=== PATIENT | male | born 1940 | race African-American/Black ===

== ENCOUNTER 2021-05-06 09:29 | Inpatient (IN) | payer OTHER ==
[~2021-05-06] VITALS: Ht 188 cm; Wt 98.4 kg
[2021-05-06] MEDS ORDERED: MORPHINE SULFATE 4 MG/ML CPJ (NOT FOR IM USE) IV STA (09:55)
[2021-05-06] MEDS ORDERED: ACETAMINOPHEN 325MG TABLET PO STA (09:55)
[2021-05-06] MEDS ORDERED: SODIUM CHLORIDE 0.9% 1000ML BAG (SEPSIS BOLUS) IV ONE (10:00)
[2021-05-06 10:31] LABS: HEMATOCRIT. 33.3 % (42.0-52.0); HEMOGLOBIN. 10.9 g/dL (14.0-18.0); MEAN CORPUSCULAR HEMOGLOBIN 28.9 pg (28.0-32.0); MEAN CORPUSCULAR VOLUME 88.1 fL (80.0-94.0); MEAN PLATELET VOLUME 8.4 fl (7.4-10.4); PLATELET 229 x1000/uL (130-400); RED BLOOD CELL COUNT 3.78 mill/uL (4.7-6.1); RED CELL DISTRIBUTION WIDTH 15.6 % (11.6-14.6)
[2021-05-06 10:35] LABS: CHLORIDE 110 mEq/L (98-107)
[2021-05-06 11:03] LABS: CLARITY URINE CLOUDY (CLEAR); COLOR URINE YELLOW (YELLOW); KETONES URINE NEGATIVE (NEGATIVE); LEUKOCYTE ESTERASE URINE 3+ (NEGATIVE); NITRITE URINE POSITIVE (NEGATIVE); OCCULT BLOOD URINE 2+ (NEGATIVE); PROTEIN URINE 2+ (NEGATIVE); SPECIFIC GRAVITY URINE 1.015 (1.005-1.030)
[2021-05-06] MEDS ORDERED: CEFTRIAXONE 1 G PREMIX 50 ML IV ONE (11:15)
[2021-05-06 12:49] LABS: PLATELET ESTIMATE NORMAL
[2021-05-06] MEDS ORDERED: DEXTROSE 50% WATER 50ML SYRINGE IV PRN (13:15)
[2021-05-06] MEDS: INSULIN LISPRO 100 UNITS/ML SUBCUT SCH ×3 (13:20→21:00)
[2021-05-06] MEDS: SODIUM CHLORIDE 0.45% 1,000 ML IV SCH (13:38)
[2021-05-06] MEDS: HYDROCODONE/ACETAMINOPHEN 5/325MG TABLET PO PRN (16:46)
[2021-05-06] MEDS: BLOOD SUGAR DIAGNOSTIC STRIP TEST SCH ×2 (17:19→21:00)
[2021-05-06 22:00] VITALS: BP 156/60
[2021-05-06] MEDS ORDERED: NALOXONE HCL 0.4 MG/ML 1ML VIAL IV PRN (23:45)
[2021-05-07] VITALS: BP 188/75
[2021-05-07 00:10] VITALS: BP 143/72
[2021-05-07] MEDS ORDERED: METF-873 PO (00:18)
[2021-05-07] MEDS ORDERED: ATEN50TA PO (00:19)
[2021-05-07] MEDS ORDERED: ALLO300T2 PO (00:21)
[2021-05-07] MEDS: PIPERACILLIN/TAZOBACTAM 3.375 G in DEXTROSE 5% WATER 50 ML IV SCH ×4 (00:59→21:29)
[2021-05-07] MEDS ORDERED: VANCOMYCIN 1250MG in DEXTROSE 5% WATER 250ML IV SCH (02:00)
[2021-05-07] MEDS: HYDROCODONE/ACETAMINOPHEN 5/325MG TABLET PO PRN (02:14)
[2021-05-07] MEDS: SODIUM CHLORIDE 0.45% 1,000 ML IV SCH ×3 (02:49→22:45)
[2021-05-07 04:00] VITALS: BP 112/59
[2021-05-07] MEDS: BLOOD SUGAR DIAGNOSTIC STRIP TEST SCH ×3 (05:52→21:28)
[2021-05-07] MEDS: INSULIN LISPRO 100 UNITS/ML SUBCUT SCH ×3 (06:32→21:00)
[2021-05-07 08:00] VITALS: BP_SYST 54
[2021-05-07] MEDS: ENOXAPARIN 40MG/0.4ML SYR SUBCUT SCH (09:47)
[2021-05-07] MEDS: PANTOPRAZOLE SODIUM 40 MG/VIAL IV SCH (12:25)
[2021-05-07 16:00] VITALS: BP 143/64
[2021-05-07] MEDS: ACETAMINOPHEN 325MG TABLET PO PRN ×2 (16:18→23:41)
[2021-05-07 20:00] VITALS: BP 105/53
[2021-05-07 23:55] LABS: HEMATOCRIT. 36.4 % (42.0-52.0); HEMOGLOBIN. 11.8 g/dL (14.0-18.0); MEAN CORPUSCULAR VOLUME 89.8 fL (80.0-94.0); MEAN PLATELET VOLUME 8.7 fl (7.4-10.4); PLATELET 187 x1000/uL (130-400); RED BLOOD CELL COUNT 4.05 mill/uL (4.7-6.1); RED CELL DISTRIBUTION WIDTH 16.3 % (11.6-14.6)
[2021-05-08] VITALS: BP 155/83
[2021-05-08] MEDS ORDERED: VANCOMYCIN 1 G PREMIX 200 ML IV SCH
[2021-05-08 03:45] LABS: PLATELET ESTIMATE NORMAL
[2021-05-08 04:00] VITALS: BP 116/56
[2021-05-08] MEDS: SODIUM CHLORIDE 0.45% 1,000 ML IV SCH ×2 (06:13→17:43)
[2021-05-08] MEDS: BLOOD SUGAR DIAGNOSTIC STRIP TEST SCH ×4 (06:29→21:53)
[2021-05-08] MEDS: INSULIN LISPRO 100 UNITS/ML SUBCUT SCH ×4 (06:29→21:59)
[2021-05-08] MEDS: PIPERACILLIN/TAZOBACTAM 3.375 G in DEXTROSE 5% WATER 50 ML IV SCH ×3 (06:30→21:59)
[2021-05-08 07:20] LABS: MEAN CORPUSCULAR HEMOGLOBIN 29.3 pg (28.0-32.0); MEAN CORPUSCULAR VOLUME 88.2 fL (80.0-94.0); MEAN PLATELET VOLUME 9.4 fl (7.4-10.4); PLATELET 189 x1000/uL (130-400); RED BLOOD CELL COUNT 3.32 mill/uL (4.7-6.1)
[2021-05-08 07:28] LABS: HEMATOCRIT. 29.3 % (42.0-52.0); HEMOGLOBIN. 9.7 g/dL (14.0-18.0)
[2021-05-08 07:48] LABS: SODIUM URINE RANDOM 28 mEq/L
[2021-05-08 08:00] VITALS: BP 112/74
[2021-05-08] MEDS: ENOXAPARIN 40MG/0.4ML SYR SUBCUT SCH (09:50)
[2021-05-08] MEDS: PANTOPRAZOLE SODIUM 40 MG/VIAL IV SCH (09:50)
[2021-05-08 12:00] VITALS: BP 134/68
[2021-05-08 13:46] LABS: PLATELET ESTIMATE NORMAL
[2021-05-08] MEDS ORDERED: VANCOMYCIN 1250MG in DEXTROSE 5% WATER 250ML IV SCH (14:00)
[2021-05-08 16:00] VITALS: BP 117/51
[2021-05-08 20:00] VITALS: BP 126/57
[2021-05-09] VITALS: BP 136/64
[2021-05-09] MEDS: SODIUM CHLORIDE 0.45% 1,000 ML IV SCH ×2 (00:57→14:30)
[2021-05-09 04:00] VITALS: BP 130/66
[2021-05-09] MEDS: BLOOD SUGAR DIAGNOSTIC STRIP TEST SCH ×4 (06:47→21:01)
[2021-05-09] MEDS: PIPERACILLIN/TAZOBACTAM 3.375 G in DEXTROSE 5% WATER 50 ML IV SCH ×3 (06:50→21:12)
[2021-05-09] MEDS: INSULIN LISPRO 100 UNITS/ML SUBCUT SCH ×4 (06:52→21:00)
[2021-05-09 08:00] VITALS: BP 120/66
[2021-05-09] MEDS: FAMOTIDINE 20MG/2ML VIAL IV SCH (08:43)
[2021-05-09] MEDS: ENOXAPARIN 30MG/0.3ML SYR SUBCUT SCH ×2 (08:44→21:12)
[2021-05-09 12:00] VITALS: BP 132/72
[2021-05-09] MEDS ORDERED: HYDRALAZINE 20MG/ML VIAL IV PRN (15:30)
[2021-05-09 16:00] VITALS: BP 135/70
[2021-05-09 17:05] LABS: HEMATOCRIT. 34.4 % (42.0-52.0); HEMOGLOBIN. 11.2 g/dL (14.0-18.0); MEAN CORPUSCULAR HEMOGLOBIN 28.7 pg (28.0-32.0); MEAN CORPUSCULAR VOLUME 88.2 fL (80.0-94.0); MEAN PLATELET VOLUME 9.5 fl (7.4-10.4); PLATELET 195 x1000/uL (130-400); RED CELL DISTRIBUTION WIDTH 16.5 % (11.6-14.6)
[2021-05-09 17:06] LABS: INR 1.1; PROTHROMBIN TIME 11.6 sec (9.6-11.0)
[2021-05-09 17:17] LABS: CHLORIDE 116 mEq/L (98-107)
[2021-05-09] MEDS: DEXTROSE 5% WATER 1,000 ML IV SCH (17:24)
[2021-05-09 18:41] LABS: PLATELET ESTIMATE NORMAL
[2021-05-09 20:00] VITALS: BP 139/65
[2021-05-09] MEDS: ACETAMINOPHEN 325MG TABLET PO PRN (20:04)
[2021-05-10] VITALS: BP 160/108
[2021-05-10 04:00] VITALS: BP 148/86
[2021-05-10] MEDS: DEXTROSE 5% WATER 1,000 ML IV SCH ×2 (05:05→18:06)
[2021-05-10] MEDS: BLOOD SUGAR DIAGNOSTIC STRIP TEST SCH ×4 (05:51→21:56)
[2021-05-10] MEDS: INSULIN LISPRO 100 UNITS/ML SUBCUT SCH ×4 (06:24→21:56)
[2021-05-10] MEDS: PIPERACILLIN/TAZOBACTAM 3.375 G in DEXTROSE 5% WATER 50 ML IV SCH ×3 (06:24→21:54)
[2021-05-10 07:39] LABS: HEMOGLOBIN. 10.8 g/dL (14.0-18.0); MEAN CORPUSCULAR HEMOGLOBIN 29.4 pg (28.0-32.0); MEAN CORPUSCULAR VOLUME 87.3 fL (80.0-94.0); PLATELET 220 x1000/uL (130-400); RED BLOOD CELL COUNT 3.66 mill/uL (4.7-6.1); RED CELL DISTRIBUTION WIDTH 16.2 % (11.6-14.6)
[2021-05-10 07:42] LABS: CHLORIDE 115 mEq/L (98-107)
[2021-05-10 08:00] VITALS: BP 154/68
[2021-05-10] MEDS: FAMOTIDINE 20MG/2ML VIAL IV SCH (08:49)
[2021-05-10] MEDS: ENOXAPARIN 30MG/0.3ML SYR SUBCUT SCH ×2 (08:50→21:54)
[2021-05-10] MEDS ORDERED: LIDOCAINE HCL 1% 10 MG/ML 10ML VIAL ONE (10:10)
[2021-05-10 12:00] VITALS: BP 131/74
[2021-05-10] MEDS: ACETAMINOPHEN 325MG TABLET PO PRN (12:44)
[2021-05-10 16:00] VITALS: BP 135/70
[2021-05-10 20:00] VITALS: BP 141/70
[2021-05-10 20:24] LABS: PLATELET ESTIMATE NORMAL
[2021-05-11] VITALS: BP 152/69
[2021-05-11] MEDS: ACETAMINOPHEN 325MG TABLET PO PRN ×2 (00:34→16:13)
[2021-05-11] MEDS: DEXTROSE 5% WATER 1,000 ML IV SCH ×2 (02:47→15:03)
[2021-05-11 04:00] VITALS: BP 137/74
[2021-05-11] MEDS: BLOOD SUGAR DIAGNOSTIC STRIP TEST SCH ×4 (05:48→21:00)
[2021-05-11] MEDS: INSULIN LISPRO 100 UNITS/ML SUBCUT SCH ×4 (06:32→22:25)
[2021-05-11] MEDS: PIPERACILLIN/TAZOBACTAM 3.375 G in DEXTROSE 5% WATER 50 ML IV SCH ×3 (06:33→22:20)
[2021-05-11 07:12] LABS: HEMATOCRIT. 30.5 % (42.0-52.0); HEMOGLOBIN. 10.4 g/dL (14.0-18.0); MEAN CORPUSCULAR HEMOGLOBIN 29.5 pg (28.0-32.0); MEAN CORPUSCULAR VOLUME 86.8 fL (80.0-94.0); MEAN PLATELET VOLUME 8.9 fl (7.4-10.4); PLATELET 214 x1000/uL (130-400); RED BLOOD CELL COUNT 3.51 mill/uL (4.7-6.1); RED CELL DISTRIBUTION WIDTH 16.1 % (11.6-14.6)
[2021-05-11 07:20] LABS: CHLORIDE 114 mEq/L (98-107)
[2021-05-11 08:00] VITALS: BP 143/64
[2021-05-11] MEDS: ENOXAPARIN 30MG/0.3ML SYR SUBCUT SCH (09:51)
[2021-05-11] MEDS: FAMOTIDINE 20MG TABLET PO SCH (09:51)
[2021-05-11 12:00] VITALS: BP 169/88
[2021-05-11 16:00] VITALS: BP 131/59
[2021-05-11 19:07] LABS: PLATELET ESTIMATE NORMAL
[2021-05-11 20:00] VITALS: BP 127/59
[2021-05-11] MEDS ORDERED: METOPROLOL TARTRATE 25MG TABLET PO NR (21:30)
[2021-05-12] VITALS: BP 145/96
[2021-05-12] MEDS: ENOXAPARIN 30MG/0.3ML SYR SUBCUT SCH ×2 (00:32→08:50)
[2021-05-12] MEDS: ACETAMINOPHEN 325MG TABLET PO PRN ×2 (01:09→21:54)
[2021-05-12] MEDS ORDERED: DIGOXIN 500MCG/2ML AMP IV NR ×2 (02:00)
[2021-05-12 04:00] VITALS: BP 114/68
[2021-05-12] MEDS: BLOOD SUGAR DIAGNOSTIC STRIP TEST SCH ×4 (06:40→21:41)
[2021-05-12] MEDS: INSULIN LISPRO 100 UNITS/ML SUBCUT SCH ×4 (07:10→21:53)
[2021-05-12 07:29] LABS: HEMATOCRIT. 32.3 % (42.0-52.0); HEMOGLOBIN. 10.9 g/dL (14.0-18.0); MEAN PLATELET VOLUME 8.4 fl (7.4-10.4); PLATELET 264 x1000/uL (130-400); RED BLOOD CELL COUNT 3.75 mill/uL (4.7-6.1); RED CELL DISTRIBUTION WIDTH 15.7 % (11.6-14.6)
[2021-05-12 08:00] VITALS: BP 135/59
[2021-05-12 08:39] LABS: CHLORIDE 109 mEq/L (98-107)
[2021-05-12] MEDS: DEXTROSE 5% WATER 1,000 ML IV SCH ×2 (08:51→21:54)
[2021-05-12] MEDS: FAMOTIDINE 20MG TABLET PO SCH (08:51)
[2021-05-12] MEDS ORDERED: METOPROLOL TARTRATE 25MG TABLET PO SCH (09:00)
[2021-05-12] MEDS ORDERED: DILTIAZEM HCL 5MG/ML 5ML VIAL IV SCH (10:00)
[2021-05-12 10:28] LABS: T4 FREE 1.1 ng/dL (0.76-1.46)
[2021-05-12 12:00] VITALS: BP 123/55
[2021-05-12 12:06] LABS: ATYPICAL LYMPHOCYTES 3
[2021-05-12 12:07] LABS: PLATELET ESTIMATE NORMAL
[2021-05-12] MEDS ORDERED: ENOXAPARIN 60MG/0.6ML SYR SUBCUT SCH (12:15)
[2021-05-12] MEDS ORDERED: CEFTRIAXONE 1 G PREMIX 50 ML IV SCH ×2 (14:45)
[2021-05-12] MEDS: METOPROLOL TARTRATE 25MG TABLET PO SCH ×2 (14:51→21:43)
[2021-05-12 16:00] VITALS: BP 131/69
[2021-05-12] MEDS: CEFTRIAXONE 1,000 MG in DEXTROSE 5% WATER 50 ML IV SCH (17:53)
[2021-05-12 20:00] VITALS: BP 120/78
[2021-05-12] MEDS ORDERED: ENOXAPARIN 100MG/ML SYR SUBCUT SCH (21:00)
[2021-05-13] VITALS: BP 121/67
[2021-05-13 04:00] VITALS: BP 121/88
[2021-05-13] MEDS: BLOOD SUGAR DIAGNOSTIC STRIP TEST SCH ×4 (06:13→21:09)
[2021-05-13] MEDS: INSULIN LISPRO 100 UNITS/ML SUBCUT SCH ×4 (06:13→21:00)
[2021-05-13] MEDS: METOPROLOL TARTRATE 25MG TABLET PO SCH ×2 (06:13→21:09)
[2021-05-13 08:00] VITALS: BP 134/75
[2021-05-13 08:07] LABS: HEMATOCRIT. 31.4 % (42.0-52.0); HEMOGLOBIN. 10.5 g/dL (14.0-18.0); MEAN CORPUSCULAR VOLUME 86.2 fL (80.0-94.0); MEAN PLATELET VOLUME 8.4 fl (7.4-10.4); PLATELET 232 x1000/uL (130-400); RED BLOOD CELL COUNT 3.64 mill/uL (4.7-6.1); RED CELL DISTRIBUTION WIDTH 15.7 % (11.6-14.6)
[2021-05-13 08:17] LABS: CHLORIDE 106 mEq/L (98-107)
[2021-05-13] MEDS: ENOXAPARIN 80MG/0.8ML SYR SUBCUT SCH ×2 (08:28→21:09)
[2021-05-13] MEDS: FAMOTIDINE 20MG TABLET PO SCH (08:28)
[2021-05-13] MEDS ORDERED: POTASSIUM CHLORIDE 20MEQ/PACKET PO SCH (10:00)
[2021-05-13] MEDS ORDERED: DILTIAZEM HCL 60MG TABLET PO SCH (10:15)
[2021-05-13 10:51] LABS: PLATELET ESTIMATE NORMAL
[2021-05-13] MEDS ORDERED: MAGNESIUM 2 G PREMIX 50 ML IV SCH (11:00)
[2021-05-13 12:00] VITALS: BP 114/80
[2021-05-13] MEDS: CEFTRIAXONE 1,000 MG in DEXTROSE 5% WATER 50 ML IV SCH (14:13)
[2021-05-13] MEDS: SODIUM CHLORIDE 0.45% 1,000 ML IV SCH (14:14)
[2021-05-13 16:00] VITALS: BP 92/68
[2021-05-13] MEDS: DILTIAZEM HCL 60MG TABLET PO SCH ×2 (18:34→23:19)
[2021-05-13 20:00] VITALS: BP 129/78
[2021-05-13] MEDS: ACETAMINOPHEN 325MG TABLET PO PRN (21:15)
[2021-05-14] VITALS: BP 99/69
[2021-05-14 04:00] VITALS: BP 121/83
[2021-05-14] MEDS: DILTIAZEM HCL 60MG TABLET PO SCH ×3 (05:35→18:23)
[2021-05-14] MEDS: SODIUM CHLORIDE 0.45% 1,000 ML IV SCH (06:06)
[2021-05-14] MEDS: INSULIN LISPRO 100 UNITS/ML SUBCUT SCH ×4 (06:53→21:00)
[2021-05-14] MEDS: BLOOD SUGAR DIAGNOSTIC STRIP TEST SCH ×4 (06:53→22:08)
[2021-05-14 07:45] LABS: BASOPHILS % 0.4 % (0.0-2.0); EOSINOPHILS % 1.8 % (0.0-5.0); HEMATOCRIT. 32.4 % (42.0-52.0); HEMOGLOBIN. 10.9 g/dL (14.0-18.0); LYMPHOCYTES % 7.6 % (20.0-50.0); MEAN CORPUSCULAR HEMOGLOBIN 29.2 pg (28.0-32.0); MEAN CORPUSCULAR VOLUME 86.9 fL (80.0-94.0); MEAN PLATELET VOLUME 8.3 fl (7.4-10.4); MONOCYTES % 11.1 % (2.0-8.0); NEUTROPHILS % 79.1 % (40.0-76.0); PLATELET 273 x1000/uL (130-400); RED BLOOD CELL COUNT 3.73 mill/uL (4.7-6.1); RED CELL DISTRIBUTION WIDTH 15.8 % (11.6-14.6)
[2021-05-14 07:48] LABS: CHLORIDE 106 mEq/L (98-107)
[2021-05-14 08:00] VITALS: BP 118/75
[2021-05-14] MEDS: ENOXAPARIN 80MG/0.8ML SYR SUBCUT SCH ×2 (09:09→21:57)
[2021-05-14] MEDS: METOPROLOL TARTRATE 25MG TABLET PO SCH (09:09)
[2021-05-14] MEDS: FAMOTIDINE 20MG TABLET PO SCH (09:09)
[2021-05-14] MEDS ORDERED: DIGOXIN 500MCG/2ML AMP IV NR (11:15)
[2021-05-14 12:00] VITALS: BP 115/71
[2021-05-14] MEDS: CEFTRIAXONE 1,000 MG in DEXTROSE 5% WATER 50 ML IV SCH (12:58)
[2021-05-14] MEDS ORDERED: DILTIAZEM HCL 5MG/ML 5ML VIAL IV NR (14:45)
[2021-05-14 16:00] VITALS: BP 110/74
[2021-05-14] MEDS: DIGOXIN 500MCG/2ML AMP IV SCH ×2 (17:25→21:58)
[2021-05-14 20:00] VITALS: BP 131/83
[2021-05-14] MEDS: METOPROLOL TARTRATE 50MG TABLET PO SCH (21:58)
[2021-05-14] MEDS: ACETAMINOPHEN 325MG TABLET PO PRN (21:59)
[2021-05-15] VITALS: BP 103/75
[2021-05-15] MEDS: DILTIAZEM HCL 60MG TABLET PO SCH ×4 (00:48→16:13)
[2021-05-15] MEDS: SODIUM CHLORIDE 0.45% 1,000 ML IV SCH ×2 (00:48→14:38)
[2021-05-15] MEDS: DIGOXIN 500MCG/2ML AMP IV SCH ×4 (01:50→09:35)
[2021-05-15 04:00] VITALS: BP 113/75
[2021-05-15] MEDS: BLOOD SUGAR DIAGNOSTIC STRIP TEST SCH ×4 (06:30→21:00)
[2021-05-15] MEDS: INSULIN LISPRO 100 UNITS/ML SUBCUT SCH ×4 (06:30→21:00)
[2021-05-15 06:53] LABS: HEMATOCRIT. 32.5 % (42.0-52.0); MEAN CORPUSCULAR VOLUME 85.7 fL (80.0-94.0); PLATELET 309 x1000/uL (130-400); RED BLOOD CELL COUNT 3.79 mill/uL (4.7-6.1); RED CELL DISTRIBUTION WIDTH 15.5 % (11.6-14.6)
[2021-05-15 07:32] LABS: CHLORIDE 105 mEq/L (98-107)
[2021-05-15 08:00] VITALS: BP 115/72
[2021-05-15 08:08] LABS: DIGOXIN 4.8 ng/mL (0.9-2.0)
[2021-05-15] MEDS ORDERED: DILTIAZEM HCL 30MG TABLET PO NR (09:00)
[2021-05-15] MEDS: METOPROLOL TARTRATE 50MG TABLET PO SCH ×2 (09:34→21:00)
[2021-05-15] MEDS: FAMOTIDINE 20MG TABLET PO SCH (09:34)
[2021-05-15] MEDS: ENOXAPARIN 80MG/0.8ML SYR SUBCUT SCH (09:35)
[2021-05-15] MEDS ORDERED: MAGNESIUM 1 G PREMIX 100 ML IV NR (10:00)
[2021-05-15 12:00] VITALS: BP 102/61
[2021-05-15 12:05] LABS: PLATELET ESTIMATE NORMAL
[2021-05-15] MEDS: CEFTRIAXONE 1,000 MG in DEXTROSE 5% WATER 50 ML IV SCH (13:30)
[2021-05-15] MEDS: ACETAMINOPHEN 325MG TABLET PO PRN ×2 (14:20→23:06)
[2021-05-15] MEDS ORDERED: HYDROCODONE/ACETAMINOPHEN 5/325MG TABLET PO PRN (15:30)
[2021-05-15] MEDS ORDERED: LORAZEPAM 2MG/ML CPJ IV PRN (15:30)
[2021-05-15] MEDS ORDERED: NALOXONE HCL 0.4MG/ML VIAL IV PRN (15:45)
[2021-05-15 16:00] VITALS: BP 110/68
[2021-05-15 20:00] VITALS: BP 121/75
[2021-05-15] MEDS: ENOXAPARIN 100MG/ML SYR SUBCUT SCH (21:00)
[2021-05-16] VITALS (8 sets, daily range): BP systolic 112–146; BP diastolic 64–88
[2021-05-16] MEDS: DILTIAZEM HCL 60MG TABLET PO SCH ×3 (06:12→13:05)
[2021-05-16] MEDS: BLOOD SUGAR DIAGNOSTIC STRIP TEST SCH ×3 (06:12→17:05)
[2021-05-16 06:33] LABS: BASOPHILS % 0.4 % (0.0-2.0); HEMATOCRIT. 32.9 % (42.0-52.0); HEMOGLOBIN. 11.2 g/dL (14.0-18.0); LYMPHOCYTES % 7.4 % (20.0-50.0); MEAN CORPUSCULAR VOLUME 85.8 fL (80.0-94.0); MEAN PLATELET VOLUME 8.1 fl (7.4-10.4); MONOCYTES % 12.8 % (2.0-8.0); NEUTROPHILS % 77.4 % (40.0-76.0); PLATELET 335 x1000/uL (130-400); RED BLOOD CELL COUNT 3.84 mill/uL (4.7-6.1); RED CELL DISTRIBUTION WIDTH 15.3 % (11.6-14.6)
[2021-05-16] MEDS: INSULIN LISPRO 100 UNITS/ML SUBCUT SCH ×3 (06:42→17:06)
[2021-05-16 06:54] LABS: CHLORIDE 106 mEq/L (98-107)
[2021-05-16 07:15] LABS: DIGOXIN 1.5 ng/mL (0.9-2.0)
[2021-05-16] MEDS: SODIUM CHLORIDE 0.45% 1,000 ML IV SCH (08:10)
[2021-05-16] MEDS: FAMOTIDINE 20MG TABLET PO SCH (08:34)
[2021-05-16] MEDS: METOPROLOL TARTRATE 50MG TABLET PO SCH (08:35)
[2021-05-16] MEDS: ENOXAPARIN 100MG/ML SYR SUBCUT SCH (08:35)
[2021-05-16] MEDS: CEFTRIAXONE 1,000 MG in DEXTROSE 5% WATER 50 ML IV SCH (13:04)
[2021-05-16] MEDS: ACETAMINOPHEN 325MG TABLET PO PRN (13:05)
[2021-05-16] MEDS ORDERED: DILTIAZEM HCL 90MG TABLET PO SCH (18:00)
== END 2021-05-16 20:25 | DRG 871 ==
LOC: ER 09:29 → EDBEDREQSVC 11:27 → EDBEDREQ 11:27 → EDBEDREQTM 11:27 → 7EST 12:35 → EDBEDREQTM 12:43 → EDBEDREQ 12:43 → SUPCPDRO 13:11 → ENRESERV 20:13
PROVIDERS: ADMIT Internal Medicine; ATTEND Internal Medicine
PROC: 02HV33Z Insertion of Infusion Device into Superior Vena Cava, Percutaneous Approach (ICD-10-PCS; principal; 2021-05-10)
PROC: B518ZZA Fluoroscopy of Superior Vena Cava, Guidance (ICD-10-PCS; 2021-05-10)
PROC: B548ZZA Ultrasonography of Superior Vena Cava, Guidance (ICD-10-PCS; 2021-05-10)
DX: A41.51 Sepsis due to Escherichia coli [E. coli] (principal); N17.0 Acute kidney failure with tubular necrosis; I48.92 Unspecified atrial flutter; I82.412 Acute embolism and thrombosis of left femoral vein; I82.492 Acute embolism and thrombosis of other specified deep vein of left lower extremity; E87.1 Hypo-osmolality and hyponatremia; N12 Tubulo-interstitial nephritis, not specified as acute or chronic; E44.1 Mild protein-calorie malnutrition; D64.9 Anemia, unspecified; M10.9 Gout, unspecified; Z85.46 Personal history of malignant neoplasm of prostate; Z96.651 Presence of right artificial knee joint; M54.50 Low back pain, unspecified; M54.9 Dorsalgia, unspecified; G89.29 Other chronic pain; E78.5 Hyperlipidemia, unspecified; I48.91 Unspecified atrial fibrillation; I12.9 Hypertensive chronic kidney disease with stage 1 through stage 4 chronic kidney disease, or unspecified chronic kidney disease; Z20.822 Contact with and (suspected) exposure to COVID-19; E11.22 Type 2 diabetes mellitus with diabetic chronic kidney disease; N18.9 Chronic kidney disease, unspecified; Z79.899 Other long term (current) drug therapy; Z79.84 Long term (current) use of oral hypoglycemic drugs; Z68.27 Body mass index [BMI] 27.0-27.9, adult
CPT/HCPCS: 36415; 36573; 71045; 74176; 76770; 78582; 80048; 80053; 80076; 80162; 80202; 81003; 82962; 83036; 83605; 83735; 83935; 84145; 84153; 84300; 84439; 84443; 84481; 84484; 85025; 85379; 87077; 87186; 87426; 93005; 93306; 93970; 97110; 97116; 97162; 97166; 97530; 99291; A9558; C1725; C1769; C1893; C9113; J0360; J0696; J1160; J1650; J1815; J2270; J2543; J3370; J3475; J3490; J7030; J7040; J7060; J7070; G0103

== ENCOUNTER 2021-10-05 21:32 | Inpatient (IN) | payer OTHER ==
[~2021-10-05] VITALS: Ht 188 cm; Wt 91.7 kg
[~2021-10-05 21:32] MED LIST: ACET-2708 PO; ALBU90AE INH; ALLO300T2 PO; APIX5TAB MT; APIX5TAB PO; DIGO125T80 MT; DILT120T13 MT; METF-873 PO; METO75TA MT; SIMV-46 MT; VALS80TA30 PO
[2021-10-05] MEDS ORDERED: ACETAMINOPHEN 325MG TABLET PO STA (22:42)
[2021-10-05] MEDS ORDERED: KETOROLAC 30MG/ML VIAL IV STA (22:42)
[2021-10-05] MEDS ORDERED: CEFTRIAXONE 1 G PREMIX 50 ML IV ONE (22:45)
[2021-10-05] MEDS ORDERED: SODIUM CHLORIDE 0.9% 1,000 ML IV ONE (22:45)
[2021-10-05 23:50] LABS: HEMATOCRIT. 38.3 % (42.0-52.0); HEMOGLOBIN. 13.1 g/dL (14.0-18.0); MEAN CORPUSCULAR HEMOGLOBIN 30.1 pg (28.0-32.0); MEAN CORPUSCULAR VOLUME 88.2 fL (80.0-94.0); MEAN PLATELET VOLUME 7.8 fl (7.4-10.4); PLATELET 155 x1000/uL (130-400); RED BLOOD CELL COUNT 4.35 mill/uL (4.7-6.1); RED CELL DISTRIBUTION WIDTH 17.6 % (11.6-14.6)
[2021-10-06 00:05] LABS: CHLORIDE 109 mEq/L (98-107)
[2021-10-06 00:11] LABS: CLARITY URINE CLOUDY (CLEAR); COLOR URINE YELLOW (YELLOW); KETONES URINE NEGATIVE (NEGATIVE); LEUKOCYTE ESTERASE URINE 1+ (NEGATIVE); NITRITE URINE NEGATIVE (NEGATIVE); OCCULT BLOOD URINE TRACE (NEGATIVE); PROTEIN URINE 1+ (NEGATIVE); SPECIFIC GRAVITY URINE 1.021 (1.005-1.030); UROBILINOGEN URINE 0.2 E.U./dL (0.2-1.0)
[2021-10-06] MEDS ORDERED: CEFTRIAXONE 1 G PREMIX 50 ML IV SCH (00:15)
[2021-10-06] MEDS ORDERED: ACETAMINOPHEN 325MG TABLET PO SCH (00:15)
[2021-10-06] MEDS ORDERED: KETOROLAC 30MG/ML VIAL IV SCH (00:15)
[2021-10-06 04:27] LABS: PLATELET ESTIMATE NORMAL
[2021-10-06 05:50] VITALS: BP 134/64
[2021-10-06] MEDS ORDERED: DEXTROSE 50% WATER 50ML SYRINGE IV PRN (07:00)
[2021-10-06] MEDS ORDERED: ACETAMINOPHEN 325MG TABLET PO PRN (07:00)
[2021-10-06] MEDS: BLOOD SUGAR DIAGNOSTIC STRIP TEST SCH ×4 (07:08→19:56)
[2021-10-06] MEDS: INSULIN LISPRO 100 UNITS/ML SUBCUT SCH ×4 (07:12→21:00)
[2021-10-06 08:00] VITALS: BP 133/59
[2021-10-06] MEDS: PANTOPRAZOLE SODIUM 40 MG/VIAL IV SCH (08:41)
[2021-10-06] MEDS ORDERED: APIXABAN 5 MG TABLET PO SCH (09:00)
[2021-10-06] MEDS ORDERED: PIPERACILLIN/TAZOBACTAM 3.375 G in DEXTROSE 5% WATER 50 ML IV SCH (09:00)
[2021-10-06] MEDS ORDERED: IPRATROPIUM/ALBUTEROL 0.5-3(2.5)MG/3ML NEB NEB PRN (10:00)
[2021-10-06] MEDS ORDERED: MAGNESIUM/ALUMINUM HYDROXIDE/SIMETHICONE 30ML UDC PO PRN (10:00)
[2021-10-06] MEDS ORDERED: GUAIFENESIN 200MG/10ML SUGAR FREE UDC PO PRN (10:00)
[2021-10-06] MEDS ORDERED: CLONIDINE 0.1MG TABLET PO PRN (10:00)
[2021-10-06] MEDS ORDERED: NA PHOS,M-B/NA PHOS,DI-BA ENEMA 118ML PR PRN (10:00)
[2021-10-06] MEDS ORDERED: HYDROCODONE/ACETAMINOPHEN 5/325MG TABLET PO PRN (10:00)
[2021-10-06] MEDS ORDERED: ONDANSETRON HCL 4MG/2ML INJ IV PRN (10:00)
[2021-10-06] MEDS ORDERED: LORAZEPAM 0.5MG TABLET PO PRN (10:00)
[2021-10-06] MEDS ORDERED: DIPHENHYDRAMINE 50MG/ML VIAL IV PRN (10:00)
[2021-10-06] MEDS ORDERED: DOCUSATE SODIUM 100MG CAPSULE PO PRN (10:00)
[2021-10-06] MEDS ORDERED: NALOXONE HCL 0.4MG/ML VIAL IV PRN (10:15)
[2021-10-06 10:52] LABS: BASOPHILS % 0.3 % (0.0-2.0); EOSINOPHILS % 0.4 % (0.0-5.0); HEMATOCRIT. 37.7 % (42.0-52.0); HEMOGLOBIN. 12.9 g/dL (14.0-18.0); LYMPHOCYTES % 8.3 % (20.0-50.0); MEAN CORPUSCULAR HEMOGLOBIN 30.5 pg (28.0-32.0); MEAN CORPUSCULAR VOLUME 88.9 fL (80.0-94.0); MEAN PLATELET VOLUME 7.8 fl (7.4-10.4); MONOCYTES % 11.4 % (2.0-8.0); NEUTROPHILS % 79.6 % (40.0-76.0); PLATELET 133 x1000/uL (130-400); RED BLOOD CELL COUNT 4.24 mill/uL (4.7-6.1); RED CELL DISTRIBUTION WIDTH 17.4 % (11.6-14.6)
[2021-10-06 10:56] LABS: CHLORIDE 110 mEq/L (98-107)
[2021-10-06 11:56] LABS: INR 1.1; PROTHROMBIN TIME 11.6 sec (9.6-11.0)
[2021-10-06 12:17] VITALS: BP 148/67
[2021-10-06] MEDS: LEVOFLOXACIN 500MG PREMIX 100 ML IV SCH (13:09)
[2021-10-06] MEDS: SODIUM CHLORIDE 0.45% 1,000 ML IV SCH (14:46)
[2021-10-06 16:00] VITALS: BP 153/77
[2021-10-06] MEDS: APIXABAN 5 MG TABLET PO SCH (17:52)
[2021-10-06 20:00] VITALS: BP 138/68
[2021-10-07] VITALS: BP 142/73
[2021-10-07 03:58] VITALS: BP 112/76
[2021-10-07] MEDS: BLOOD SUGAR DIAGNOSTIC STRIP TEST SCH ×4 (05:28→19:44)
[2021-10-07] MEDS: INSULIN LISPRO 100 UNITS/ML SUBCUT SCH ×4 (05:36→21:00)
[2021-10-07 07:18] LABS: HEMATOCRIT. 34.2 % (42.0-52.0); MEAN CORPUSCULAR HEMOGLOBIN 30.8 pg (28.0-32.0); MEAN PLATELET VOLUME 7.6 fl (7.4-10.4); PLATELET 140 x1000/uL (130-400); RED BLOOD CELL COUNT 3.89 mill/uL (4.7-6.1); RED CELL DISTRIBUTION WIDTH 17.2 % (11.6-14.6)
[2021-10-07 07:51] LABS: CHLORIDE 108 mEq/L (98-107)
[2021-10-07 08:00] VITALS: BP 155/89
[2021-10-07 08:10] LABS: HDL CHOLESTEROL 37 mg/dL (40-59); LDL CHOLESTEROL 82 mg/dL (5-100)
[2021-10-07] MEDS: APIXABAN 5 MG TABLET PO SCH ×2 (08:32→16:58)
[2021-10-07] MEDS: PANTOPRAZOLE SODIUM 40 MG/VIAL IV SCH (08:32)
[2021-10-07 08:58] LABS: PLATELET ESTIMATE NORMAL
[2021-10-07 12:00] VITALS: BP 140/76
[2021-10-07] MEDS: LEVOFLOXACIN 500MG PREMIX 100 ML IV SCH (12:42)
[2021-10-07] MEDS: SODIUM CHLORIDE 0.45% 1,000 ML IV SCH (12:43)
[2021-10-07 16:00] VITALS: BP 134/69
[2021-10-07 20:00] VITALS: BP 146/83
[2021-10-08] VITALS: BP 139/82
[2021-10-08 04:00] VITALS: BP 149/76
[2021-10-08] MEDS: BLOOD SUGAR DIAGNOSTIC STRIP TEST SCH ×2 (05:15→12:46)
[2021-10-08] MEDS: INSULIN LISPRO 100 UNITS/ML SUBCUT SCH ×2 (05:26→12:40)
[2021-10-08 08:00] VITALS: BP 134/83
[2021-10-08 08:09] LABS: HEMATOCRIT. 35.2 % (42.0-52.0); HEMOGLOBIN. 12.1 g/dL (14.0-18.0); MEAN CORPUSCULAR VOLUME 87.2 fL (80.0-94.0); MEAN PLATELET VOLUME 7.7 fl (7.4-10.4); PLATELET 145 x1000/uL (130-400); RED BLOOD CELL COUNT 4.03 mill/uL (4.7-6.1); RED CELL DISTRIBUTION WIDTH 16.8 % (11.6-14.6)
[2021-10-08 08:27] LABS: CHLORIDE 109 mEq/L (98-107)
[2021-10-08] MEDS: PANTOPRAZOLE SODIUM 40 MG/VIAL IV SCH (08:51)
[2021-10-08] MEDS: APIXABAN 5 MG TABLET PO SCH (08:51)
[2021-10-08 10:56] LABS: PLATELET ESTIMATE NORMAL
[2021-10-08] MEDS ORDERED: AMOX-424 MT (11:57)
[2021-10-08 12:00] VITALS: BP 149/73
[2021-10-08 12:28] VITALS: BP 149/73
[2021-10-08] MEDS: LEVOFLOXACIN 500MG PREMIX 100 ML IV SCH (12:46)
[2021-10-08 16:00] VITALS: BP 139/69
== END 2021-10-08 17:35 | disposition home or self-care (01) | DRG 690 ==
LOC: ER 21:32 → EDBEDREQ 10-06 01:24 → 8WST 10-06 03:33 → EDBEDREQTM 10-06 03:39 → EDBEDREQ 10-06 03:39 → ENRESERV 10-06 04:16
PROVIDERS: ADMIT Internal Medicine; ATTEND Internal Medicine
DX: N39.0 Urinary tract infection, site not specified (principal); I48.20 Chronic atrial fibrillation, unspecified; R65.10 Systemic inflammatory response syndrome (SIRS) of non-infectious origin without acute organ dysfunction; D64.9 Anemia, unspecified; E86.0 Dehydration; E78.5 Hyperlipidemia, unspecified; I10 Essential (primary) hypertension; E11.9 Type 2 diabetes mellitus without complications; Z96.659 Presence of unspecified artificial knee joint; B96.89 Other specified bacterial agents as the cause of diseases classified elsewhere; M19.90 Unspecified osteoarthritis, unspecified site; N28.1 Cyst of kidney, acquired; Z86.711 Personal history of pulmonary embolism; Z86.718 Personal history of other venous thrombosis and embolism; Z79.01 Long term (current) use of anticoagulants; Z79.84 Long term (current) use of oral hypoglycemic drugs; Z79.899 Other long term (current) drug therapy; Z87.440 Personal history of urinary (tract) infections
CPT/HCPCS: 36415; 71045; 74176; 80048; 80053; 80061; 81003; 82962; 83036; 83605; 83880; 84145; 84153; 84443; 84484; 85025; 87077; 87186; 93005; 93306; 93970; 97162; 97535; 99291; C9113; J0696; J1815; J1885; J1956; J2543; J7030; J7060; G0103